=== PATIENT | male | born 1990 | race Caucasian/White ===

== ENCOUNTER 2018-05-20 16:09 | Emergency (ER) | payer MEDICAID ==
[~2018-05-20] VITALS: Ht 193 cm; Wt 99.8 kg
--- NOTE | 2018-05-20 17:21 | Emergency Room Report ---
History of Present Illness General Chief Complaint: Pain Source: Patient Present Illness HPI 28-year-old male presents to the emergency department complaining of 6/10 in severity acute onset left-sided abdominal tenderness and pain status post 3 and abdominal exercises at the gym utilizing weights. Patient denies palpable masses he denies history of hernia as he denies constipation, diarrhea, nausea, vomiting, fevers or chills. Patient reports tenderness upon palpation of the also reports exacerbation upon sitting up or engaging the abdominal muscles.Denies testicular pain or swelling, denies inguinal symptoms. Denies numbness tingling or loss of sensation or gross motor movements of the extremities, incontinence of bowel or bladder. Denies CP, Palpitations, LOC, AMS , dizziness, Changes in Vision, weakness or a sudden severe headache. Allergies: Coded Allergies: No Known Allergies (Unverified , 05/20/18) Patient History Past Medical History: see triage record Past Surgical History: none Pertinent Family History: none Reviewed Nursing Documentation: PMH: Agreed; PSxH: Agreed Nursing Documentation-PMH Past Medical History: No Stated History Review of Systems All Other Systems: negative except mentioned in HPI Physical Exam Vital Signs Date Time Temp Pulse Resp B/P (MAP) Pulse Ox O2 Delivery O2 Flow Rate FiO2 05/20/18 16:18 97.7 90 18 128/76 96 Room Air 97.7 Sp02 EP Interpretation: reviewed, normal General Appearance: no apparent distress, alert, GCS 15, non-toxic Head: normocephalic, atraumatic ENT: hearing grossly normal, normal voice Neck: full range of motion Respiratory: lungs clear, normal breath sounds, speaking full sentences Cardiovascular #1: regular rate, rhythm Gastrointestinal: normal bowel sounds - mildlyhyperactive in all 4 quadrants, non tender, soft, no mass, non-distended, no guarding, tenderness - mild TTP to deep palpation of the abdomen on the LLQ and LUQ medially. no obvious palpable masses, no peritoneal signs. Rectal: deferred Genitourinary: normal inspection Musculoskeletal: back normal, gait/station normal, normal range of motion, non- tender Neurologic: alert, oriented x3, responsive, motor strength/tone normal, sensory intact, speech normal, grossly normal Psychiatric: judgement/insight normal Skin: normal color, no rash, warm/dry, well hydrated Lymphatic: no adenopathy Medical Decision Making PA Attestation Dr. Ratliff is my supervising Physician whom patient management has been discussed with. Diagnostic Impression: Primary Impression: Abdominal muscle strain Qualified Codes: S39.011A - Strain of muscle, fascia and tendon of abdomen, initial encounter Additional Impression: Abdominal pain Qualified Codes: R10.9 - Unspecified abdominal pain ER Course 28-year-old male presents to the emergency department complaining of 6/10 in severity acute onset left-sided abdominal tenderness and pain status post 3 and abdominal exercises at the gym utilizing weights. Patient denies palpable masses he denies history of hernia as he denies constipation, diarrhea, nausea, vomiting, fevers or chills. Patient reports tenderness upon palpation of the also reports exacerbation upon sitting up or engaging the abdominal muscles.Denies testicular pain or swelling, denies inguinal symptoms. Denies numbness tingling or loss of sensation or gross motor movements of the extremities, incontinence of bowel or bladder. Denies CP, Palpitations, LOC, AMS , dizziness, Changes in Vision, weakness or a sudden severe headache. Ddx considered but are not limited to Fracture, dislocation, contusion, Sprain/ Strain/Spasm, Hernia, abdominal wall tear, acute appendicitis just to name a few. . Vital signs: are WNL, pt. is afebrile H&PE are most consistent with musculoskeletal injury no bony ttp, imaging is not indicated at this time. no evidence of acute abdomen. Pt. is comfortable during physical exam with moderate palpation. ORDERS: ED INTERVENTIONS: - [ ] DISCHARGE: At this time pt. is stable for d/c to home. Will provide printed patient care instructions, and any necessary prescriptions. Care plan and follow up instructions have been discussed with the patient prior to discharge. Last Vital Signs Date Time Temp Pulse Resp B/P (MAP) Pulse Ox O2 Delivery O2 Flow Rate FiO2 05/20/18 16:18 97.7 90 18 128/76 96 Room Air 97.7 Disposition: HOME, SELF-CARE Condition: Stable Scripts Ibuprofen* (MOTRIN*) 600 Mg Tablet 600 MG ORAL THREE TIMES A DAY, #20 TAB 0 Refills Prov: Radha Domínguez 05/20/18 Referrals: NON PHYSICIAN (PCP) Patient Instructions: Muscle Strain, [id number] Additional Instructions: Take medications as directed. Follow up with a Primary Care Provider in 3-5 days, even if your symptoms have resolved. --Please review list of primary care clinics, if you do not already have a primary care provider Return sooner to ED if new symptoms occur, or current symptoms become worse. - Please note that this Emergency Department Report was dictated using [employer] maker technology software, occasionally this can lead to erroneous entry secondary to interpretation by the dictation equipment. Radha Domínguez May 20, 2018 17:21
[2018-05-20] MEDS ORDERED: IBUPROFEN600 MG ORAL (17:22)
[2018-05-20 17:30] VITALS: BP 125/73
== END 2018-05-20 17:32 | disposition home or self-care (01) ==
LOC: EMR 16:52
DX: S39.011A Strain of muscle, fascia and tendon of abdomen, initial encounter (principal); Y93.B3 Activity, free weights; Y92.39 Other specified sports and athletic area as the place of occurrence of the external cause
CPT/HCPCS: 99283